=== PATIENT | female | born 1965 | race American Indian/Alaskan Native ===

== ENCOUNTER 2016-12-03 10:34 | Emergency (ER) | payer OTHER ==
[2016-12-03 10:34] VITALS: BMI 28.2
[2016-12-03 13:03] VITALS: PULSE 78; RESP 18; O2SAT 100
[2016-12-03 14:26] VITALS: BP 112/69; TEMP 98.1
--- NOTE | 2016-12-03 15:34 | C.PDOC ---
History Of Present Illness 51-year-old female, PMHx includes prior back surgery, sciatica and osteoporosis , breast ca, presents to the emergency department with complaints of back pain. Patient states she has been experiencing non-traumatic pain to right lower back pain, that radiates downward to right buttock and right leg, that started two days ago. Patient notes that pain is similar to prior pain she had on left. Denies urinary/bowel incontinence, fevers, numbness/tingling, nausea/vomiting, saddle anaesthesia, or any other associated symptoms. No other complaints at this time. Time Seen by Provider: 12/03/16 11:00 Chief Complaint (Nursing): Lower Extremity Problem/Injury History Per: Patient History/Exam Limitations: no limitations Onset/Duration Of Symptoms: Days (2) Current Symptoms Are (Timing): Still Present Severity: Moderate Past Medical History Reviewed: Historical Data, Nursing Documentation, Vital Signs Vital Signs: Last Vital Signs Temp 98.1 F 12/03/16 14:25 Pulse 78 12/03/16 14:25 Resp 18 12/03/16 14:25 BP 112/69 12/03/16 14:25 Pulse Ox 100 12/03/16 15:36 - Medical History PMH: Asthma, HTN, Osteoporosis Other PMH: breast cancer Other Surgeries: partial thyroidectomy - [facility] Procedures GUM OR ALVEOLAR INCISION (10/15/14) INJECT/INFUSE NEC (02/23/13) INSERTION OF TOTALLY IMPLANTABLE VASC ACCESS DEVIC (11/14/13) Family History: States: No Known Family Hx - Social History Hx Tobacco Use: No Hx Alcohol Use: No Hx Substance Use: No - Immunization History Hx Tetanus Toxoid Vaccination: No Hx Influenza Vaccination: No Hx Pneumococcal Vaccination: No Review Of Systems Except As Marked, All Systems Reviewed And Found Negative. Constitutional: Negative for: Fever Cardiovascular: Negative for: Chest Pain Respiratory: Negative for: Cough, Shortness of Breath Gastrointestinal: Negative for: Nausea, Vomiting, Abdominal Pain Genitourinary: Negative for: Dysuria, Incontinence Musculoskeletal: Positive for: Back Pain, Leg Pain Skin: Negative for: Rash, Bruising Neurological: Negative for: Weakness, Numbness Physical Exam - Physical Exam Appears: Non-toxic, No Acute Distress Skin: Warm, Dry, No Rash Head: Atraumatic Eye(s): bilateral: Normal Inspection Neck: Normal ROM, No Midline Cervical Tenderness Chest: Symmetrical, No Deformity, No Tenderness Cardiovascular: Rhythm Regular, No Murmur Respiratory: Normal Breath Sounds, No Accessory Muscle Use, No Wheezing Gastrointestinal/Abdominal: Soft, No Tenderness Back: No CVA Tenderness, No Vertebral Tenderness, Other (tenderness to palpation of right sciatic notch) Extremity: Normal ROM, Other (Tenderness to right right hip. ) Neurological/Psych: Oriented x3, Normal Speech, Normal Cognition, Normal Motor, Normal Sensation ED Course And Treatment O2 Sat by Pulse Oximetry: 100 Pulse Ox Interpretation: Normal Medical Decision Making Medical Decision Making: pt feeling better after toradol. discharged home., with pmd f/u pt was seen during [employer] down time, discharged on paper, chart written after [employer] working again. Disposition - Disposition Referrals: Manny Macias MD [Primary Care Provider] - Disposition: HOME/ ROUTINE Disposition Time: 13:00 Condition: IMPROVED - Clinical Impression Clinical Impression: Sciatica of right side - Scribe Statement The provider has reviewed the documentation as recorded by the Mary Ann Hunter All medical record entries made by the Joeibamrit were at my direction and personally dictated by me. I have reviewed the chart and agree that the record accurately reflects my personal performance of the history, physical exam, medical decision making, and the department course for this patient. I have also personally directed, reviewed, and agree with the discharge instructions and disposition.
--- NOTE | 2016-12-03 15:59 | RAD ---
PROCEDURE: Right Hip Radiographs. HISTORY: Pain. No history of recent/ related trauma provided COMPARISON: None. FINDINGS: BONES: Normal. No fracture. JOINTS: Degenerative changes both hips right greater than left. SOFT TISSUES: Normal. OTHER FINDINGS: None. IMPRESSION: Mild degenerative changes. No acute findings.
== END 2016-12-03 14:25 | disposition home or self-care (01) ==
LOC: SUPCPDRO 10:34 → C.ER 10:34
DX: M54.31 Sciatica, right side (principal)
CPT/HCPCS: 73502; 96372; 99283; J1885

== ENCOUNTER 2017-01-24 14:57 | Inpatient (IN) | payer OTHER ==
[2017-01-24 14:58] VITALS: BMI 28.2
[2017-01-24] MEDS ORDERED: Sodium Chloride 0.9% 500 ML IV ONE (16:04)
[2017-01-24 16:42] LABS: BASO % 0.6 % (0.0-2.0); EOS # 0.1 K/uL (0.0-0.7); EOS % 0.7 % (0.0-4.0); HEMOGLOBIN 10.8 g/dL (11.0-16.0); LYMPH # 2.2 K/uL (1.0-4.3); LYMPH % 29.2 % (20.0-40.0); MEAN CELL VOLUME 89.6 fL (81.0-99.0); MEAN CORPUSCULAR HEMOGLOBIN 29.8 pg (27.0-31.0); MEAN CORPUSCULAR HGB CONC 33.3 g/dL (33.0-37.0); MEAN PLATELET VOLUME 7.7 fL (7.2-11.7); MONO # 0.8 K/uL (0.0-0.8); MONO % 11.2 % (0.0-10.0); NEUT # 4.4 K/uL (1.8-7.0); NEUT % 58.3 % (50.0-75.0); RBC 3.63 Mil/uL (3.80-5.20); RED CELL DISTRIBUTION WIDTH 14.1 % (11.5-14.5); WHITE BLOOD COUNT 7.5 K/uL (4.8-10.8)
[2017-01-24 16:55] LABS: ALBUMIN 3.9 g/dL (3.5-5.0)
[2017-01-24 16:58] LABS: CALCIUM 9.2 mg/dl (8.6-10.4)
[2017-01-24] MEDS ORDERED: Sodium Chloride 0.9% 1,000 ML ONE (17:00)
--- NOTE | 2017-01-24 17:06 | RAD ---
PROCEDURE: Right Knee Radiographs. HISTORY: fall COMPARISON: None. FINDINGS: BONES: Normal. No fracture. JOINTS: Mild osteoarthritis. JOINT EFFUSION: None. OTHER FINDINGS: None. IMPRESSION: Normal radiographs of the right knee.
--- NOTE | 2017-01-24 17:38 | C.PDOC ---
History Of Present Illness 51 year old female with a PMHx of right breast CA, mastectomy, breast reconstruction, titanium plate in the left orbit, asthma, HTN, and osteophorosis presents to the ER with a complaint of watery diarrhea, nausea, vomiting, and coughing since 01/12. Patient reports she also fell and hit her right knee yesterday and notes not producing a regular amount of urine. Denies fever, chills, flank pain, abdominal pain, or chest pain. Patient's PMD is Dr. Landrum. Time Seen by Provider: 01/24/17 15:55 Chief Complaint (Nursing): GI Problem History Per: Patient History/Exam Limitations: no limitations Onset/Duration Of Symptoms: Days Current Symptoms Are (Timing): Still Present Quality Of Discomfort: Unable To Describe Associated Symptoms: Nausea, Vomiting, Diarrhea. denies: Fever, Chills Exacerbating Factors: None Alleviating Factors: None Recent travel outside of the [place]: No Abnormal Vaginal Bleeding: No Past Medical History Reviewed: Historical Data, Nursing Documentation, Vital Signs Vital Signs: Last Vital Signs Temp 98.4 F 01/24/17 18:57 Pulse 102 H 01/24/17 18:57 Resp 16 01/24/17 18:57 BP 95/63 L 01/24/17 18:57 Pulse Ox 95 01/24/17 18:57 - Medical History PMH: Asthma, HTN, Osteoporosis Surgical History: No Surg Hx - [facility] Procedures GUM OR ALVEOLAR INCISION (10/15/14) INJECT/INFUSE NEC (02/23/13) INSERTION OF TOTALLY IMPLANTABLE VASC ACCESS DEVIC (11/14/13) Family History: States: Unknown Family Hx - Social History Hx Tobacco Use: No Hx Alcohol Use: No Hx Substance Use: No - Immunization History Hx Tetanus Toxoid Vaccination: No Hx Influenza Vaccination: No Hx Pneumococcal Vaccination: No Review Of Systems Constitutional: Negative for: Fever, Chills Cardiovascular: Negative for: Chest Pain Gastrointestinal: Positive for: Nausea, Vomiting, Diarrhea. Negative for: Abdominal Pain Musculoskeletal: Negative for: Back Pain Physical Exam - Physical Exam Appears: Non-toxic, No Acute Distress Skin: Normal Color, Warm, Dry Head: Atraumatic, Normacephalic Eye(s): bilateral: Normal Inspection, PERRL, EOMI Oral Mucosa: Moist Neck: Normal, Supple Chest: No Tenderness, Other (Left sided chest port) Cardiovascular: Rhythm Regular, No Murmur Respiratory: Normal Breath Sounds, No Rales, No Rhonchi, No Wheezing Gastrointestinal/Abdominal: Soft, No Tenderness Extremity: Normal ROM, No Tenderness, No Pedal Edema Neurological/Psych: Oriented x3, Normal Speech, Normal Cognition ED Course And Treatment - Laboratory Results Result Diagrams: 01/24/17 16:39 01/24/17 17:34 O2 Sat by Pulse Oximetry: 98 (Room air) Pulse Ox Interpretation: Normal Medical Decision Making Medical Decision Making: Plan: * Blood work * Urinalysis * Pepcid * Zofran * Tetanus vaccination * IV fluids Spoke with Dr. Macias, patient with acute renal failure. request Eleonora Aquino for admission Disposition Discussed With : Dinora Aquino Doctor Will See Patient In The: Hospital Counseled Patient/Family Regarding: Studies Performed - Disposition Disposition: HOSPITALIZED Disposition Time: 18:12 Condition: GUARDED - POA Present On Arrival: None - Clinical Impression Clinical Impression: Renal failure - Scribe Statement The provider has reviewed the documentation as recorded by the Scribe Eliazar Vasquez All medical record entries made by the Scribe were at my direction and personally dictated by me. I have reviewed the chart and agree that the record accurately reflects my personal performance of the history, physical exam, medical decision making, and the department course for this patient. I have also personally directed, reviewed, and agree with the discharge instructions and disposition. Decision To Admit - Pt Status Changed To: Hospital Disposition Of: Inpatient - Admit Certification Admit to Inpatient:: After my assessment, the patient will require hospitalization for at least two midnights. This is because of the severity of symptoms shown, intensity of services needed, and/or the medical risk in this patient being treated as an outpatient. - InPatient: Physician Admission Certification: I certify that this patient requires 2 or more midnights of care for the following reason:: acute renal faillure - . Bed Request Type: Regular Patient Diagnosis: Renal failure
[2017-01-24 17:53] LABS: CALCIUM 8.7 mg/dl (8.6-10.4)
[2017-01-24] MEDS ORDERED: Enoxaparin 40 mg Syringe SC SCH (18:20)
[2017-01-24 18:23] LABS: HCG,QUALITATIVE URINE NEGATIVE (NEGATIVE)
[2017-01-24 18:25] LABS: SQUAMOUS EPITHIAL 22 /hpf (0-5); URINE BACTERIA MANY (<OCC); URINE BILIRUBIN NEGATIVE (NEGATIVE); URINE BLOOD 1+ (NEGATIVE); URINE CLARITY Hazy (Clear); URINE COLOR Yellow (YELLOW); URINE GLUCOSE (UA) NORMAL (Normal); URINE LEUKOCYTE ESTERASE TRACE Leu/uL (Negative); URINE NITRATE NEGATIVE (NEGATIVE); URINE PROTEIN 1+ mg/dL (NEGATIVE); URINE UROBILINOGEN NORMAL mg/dL (0.2-1.0)
[2017-01-24 18:33] LABS: OPIATES, UR NEGATIVE (NEGATIVE); PHENCYCLIDINE, UR NEGATIVE (NEGATIVE)
[2017-01-24 18:38] LABS: BARBITURATES, UR NEGATIVE (NEGATIVE); BENZODIAZEPINES, UR NEGATIVE (NEGATIVE)
[2017-01-24] MEDS ORDERED: Moxifloxacin IV 400mg/250ml NS 400 MG/250 ML BAG IVPB ONE (18:43)
[2017-01-24] MEDS ORDERED: Enoxaparin 40 mg Syringe ONE (18:43)
[2017-01-24] MEDS: Moxifloxacin IV 400mg/250ml NS 400 MG/250 ML BAG IVPB SCH (18:50)
[2017-01-24] MEDS ORDERED: Sodium Chloride 0.9% 1,000 ML IV SCH (21:15)
--- NOTE | 2017-01-24 21:22 | CP.PCM.HP ---
Past Patient History - Past Social History Smoking Status: Never Smoked - CARDIAC Hx Hypertension: Yes - PULMONARY Hx Asthma: Yes - NEUROLOGICAL Hx Dizziness: Yes - MUSCULOSKELETAL/RHEUMATOLOGICAL Hx Falls: Yes - GASTROINTESTINAL Hx Gastroesophageal Reflux: Yes - PSYCHIATRIC Hx Substance Use: No - SURGICAL HISTORY Hx Surgeries: Yes Hx Eye Surgery: Yes (left) Hx Mastectomy: Yes (R breast) Hx Thyroidectomy: Yes Hx Tubal Ligation: Yes Other/Comment: R breast lumpectomy, Left SC POC - ANESTHESIA Hx Anesthesia: Yes Hx Anesthesia Reactions: No Hx Malignant Hyperthermia: No Has any member of the family had a problem w/ anesthesia?: No Meds Allergies/Adverse Reactions: Allergies Allergy/AdvReac Type Severity Reaction Status Date / Time Iodinated Contrast- Oral and Allergy RASH Verified 12/03/16 10:41 IV Dye [Iodinated Contrast Media - Oral and] iodine Allergy Verified 12/03/16 10:41 morphine Allergy RASH Verified 12/03/16 10:40 silver Allergy Verified 01/24/17 17:16 [From Tegaderm AG Mesh] tap Allergy Uncoded 12/03/16 10:40 Results - Vital Signs Recent Vital Signs: Last Vital Signs Temp 98.4 F 01/24/17 18:57 Pulse 102 H 01/24/17 18:57 Resp 16 01/24/17 18:57 BP 95/63 L 01/24/17 18:57 Pulse Ox 98 01/24/17 20:04 - Labs Result Diagrams: 01/24/17 16:39 01/24/17 17:34 Labs: Laboratory Results - last 24 hr 01/24/17 01/24/17 18:18 18:18 Urine Color Yellow Urine Clarity Hazy Urine pH 5.0 Ur Specific [place] 1.011 Urine Protein 1+ H Urine Glucose (UA) Normal Urine Ketones Negative Urine Blood 1+ H Urine Nitrate Negative Urine Bilirubin Negative Urine Urobilinogen Normal Ur Leukocyte Esterase Trace Urine WBC (Auto) 34 H Urine RBC (Auto) 5 H Ur Squamous Epith Cells 22 H Urine Bacteria Many H Urine HCG, Qual Negative Urine Opiates Screen Negative Urine Methadone Screen Negative Ur Barbiturates Screen Negative Ur Phencyclidine Scrn Negative Ur Amphetamines Screen Negative U Benzodiazepines Scrn Negative U Oth Cocaine Metabols Negative U Cannabinoids Screen Negative
[2017-01-25] MEDS: Potassium Chloride 20 mEq/15 ml LIQ UD PO SCH ×2 (00:09→05:11)
[2017-01-25 01:07] VITALS: RESP 20
--- NOTE | 2017-01-25 01:18 | CP.PCM.CON ---
History of Present Illness - History of Present Illness History of Present Illness: 51 year old female with a history of right sided breast cancer s/p lumpectomy, adjuvant chemotherapy/radiation in 1999, with local recurrence in 2004 s/p mastectomy and chemotherapy, osteoporosis, admitted with dehydration and acute renal failure. The patient recently returned from [place] and notes to abdominal discomfort, N/V, and poor PO intake since eating at a [employer] restaurant. In the ER she was found to have a Cr of 13. Her Cr at the end of December was 1.4 in the office. Past medical history: breast cancer, osteoporosis Past surgical history: Mastectomy Family history: Daughter had cervical cancer Social history: Denies tobacco, alcohol, and illicit drug use. Allergies: Several, see list Review of systems: All remaining review of systems including HEENT, cardiovascular, respiratory, gastrointestinal, genitourinary, musculoskeletal, dermatologic, neurologic, and psychiatric are negative unless mentioned in the HPI. Past Patient History - Past Social History Smoking Status: Never Smoked - CARDIAC Hx Hypertension: Yes - PULMONARY Hx Asthma: Yes - NEUROLOGICAL Hx Dizziness: Yes - MUSCULOSKELETAL/RHEUMATOLOGICAL Hx Falls: Yes - GASTROINTESTINAL Hx Gastroesophageal Reflux: Yes - PSYCHIATRIC Hx Substance Use: No - SURGICAL HISTORY Hx Surgeries: Yes Hx Eye Surgery: Yes (left) Hx Mastectomy: Yes (R breast) Hx Thyroidectomy: Yes Hx Tubal Ligation: Yes Other/Comment: R breast lumpectomy, Left SC POC - ANESTHESIA Hx Anesthesia: Yes Hx Anesthesia Reactions: No Hx Malignant Hyperthermia: No Has any member of the family had a problem w/ anesthesia?: No Meds Allergies/Adverse Reactions: Allergies Allergy/AdvReac Type Severity Reaction Status Date / Time Iodinated Contrast- Oral and Allergy RASH Verified 12/03/16 10:41 IV Dye [Iodinated Contrast Media - Oral and] iodine Allergy Verified 12/03/16 10:41 morphine Allergy RASH Verified 12/03/16 10:40 silver Allergy Verified 01/24/17 17:16 [From Tegaderm AG Mesh] tap Allergy Uncoded 12/03/16 10:40 - Medications Medications: Current Medications Enoxaparin Sodium (Lovenox) 40 mg SC DAILY [facility] Last Admin: 01/24/17 18:49 Dose: 40 mg Moxifloxacin HCl (Avelox Iv 400mg/250ml Ns) 400 mg in 250 mls @ 167 mls/hr IVPB Q24H [facility] Last Admin: 01/24/17 18:50 Dose: 167 mls/hr Sodium Chloride (Sodium Chloride 0.9%) 1,000 mls @ 75 mls/hr IV .[id number] [facility] Last Admin: 01/24/17 21:15 Dose: 75 mls/hr Ondansetron HCl (Zofran Inj) 4 mg IVP Q8H PRN PRN Reason: Nausea/Vomiting Last Admin: 01/24/17 22:20 Dose: 4 mg Pantoprazole Sodium (Protonix Inj) 40 mg IVP DAILY [facility] Last Admin: 01/24/17 18:49 Dose: 40 mg Pneumococcal Polyvalent Vaccine (Pneumovax 23 Vaccine) 0.5 ml IM .ONCE ONE Stop: 01/26/17 10:01 Potassium Chloride (Potassium Chloride Oral Soln) 40 meq PO Q4 [facility] Stop: 01/25/17 04:01 Last Admin: 01/25/17 00:09 Dose: 40 meq Physical Exam - Head Exam Head Exam: ATRAUMATIC - Eye Exam Eye Exam: Normal appearance - ENT Exam ENT Exam: Mucous Membranes Dry - Respiratory Exam Respiratory Exam: NORMAL BREATHING PATTERN - Cardiovascular Exam Cardiovascular Exam: +S1, +S2 - GI/Abdominal Exam GI & Abdominal Exam: Normal Bowel Sounds - Extremities Exam Extremities exam: Positive for: normal inspection - Neurological Exam Neurological exam: Oriented x3 - Psychiatric Exam Psychiatric exam: Normal Affect, Normal Mood - Skin Skin Exam: Warm Results - Vital Signs Recent Vital Signs: Last Vital Signs Temp 98.2 F 01/25/17 00:00 Pulse 113 H 01/25/17 00:00 Resp 20 01/25/17 00:00 BP 100/61 01/25/17 00:00 Pulse Ox 96 01/25/17 00:00 - Labs Result Diagrams: 01/24/17 16:39 01/24/17 17:34 Labs: Laboratory Results - last 24 hr 01/24/17 01/24/17 18:18 18:18 Urine Color Yellow Urine Clarity Hazy Urine pH 5.0 Ur Specific [place] 1.011 Urine Protein 1+ H Urine Glucose (UA) Normal Urine Ketones Negative Urine Blood 1+ H Urine Nitrate Negative Urine Bilirubin Negative Urine Urobilinogen Normal Ur Leukocyte Esterase Trace Urine WBC (Auto) 34 H Urine RBC (Auto) 5 H Ur Squamous Epith Cells 22 H Urine Bacteria Many H Urine HCG, Qual Negative Urine Opiates Screen Negative Urine Methadone Screen Negative Ur Barbiturates Screen Negative Ur Phencyclidine Scrn Negative Ur Amphetamines Screen Negative U Benzodiazepines Scrn Negative U Oth Cocaine Metabols Negative U Cannabinoids Screen Negative Assessment & Plan (1) Anemia Assessment and Plan: mild will check ferritin, retic count, b12, folate, FOBT to further characterize Status: Acute (2) Breast cancer Assessment and Plan: bone scan in 12/2016 showed uptake in the femor/femoral neck ?metastatic disease MRI of the hip if renal function improves Thank you for this interesting consult. Status: Acute
[2017-01-25 06:55] LABS: HEMOGLOBIN 9.5 g/dL (11.0-16.0); MEAN CELL VOLUME 89.7 fL (81.0-99.0); MEAN CORPUSCULAR HEMOGLOBIN 30.5 pg (27.0-31.0); MEAN PLATELET VOLUME 8.1 fL (7.2-11.7); RBC 3.1 Mil/uL (3.80-5.20); RED CELL DISTRIBUTION WIDTH 14.2 % (11.5-14.5); WHITE BLOOD COUNT 8.2 K/uL (4.8-10.8)
[2017-01-25 07:13] LABS: ALB/GLOB RATIO 0.9 (1.0-2.1); ALBUMIN 3.2 g/dL (3.5-5.0)
[2017-01-25] MEDS: Sodium Chloride 0.9% 1,000 ML IV SCH ×2 (08:37→12:07)
[2017-01-25] MEDS: Pantoprazole 40 mg EC Tab PO SCH (09:54)
--- NOTE | 2017-01-25 10:36 | CP.PCM.CON ---
<Linda Cornejo - Last Filed: 01/25/17 11:18> History of Present Illness - History of Present Illness History of Present Illness: GI Fellow PGY4 Consult Note This is a 51yF with pmhx of breast ca s/p mastectomy and chemoradiation therapy , osteoporosis with possible mets to femur on bone scan 12/2016 plan for further imaging by oncology. Pt pw co watery diarrhea for 2 weeks starting 01/14/2017 after eating rice and crab at a [employer]. Pt reports 3-4 watery BM yellow/green in color with no associated abdominal pain, fevers, chills, pt does report nausea,vomiting and new dysphagia/burning sensation in her throat. Since admission to the hospital pt reports no further episodes of diarrhea. Also , pt reports taking po antibiotics Augmentin for dental abscess which was started prior to getting sick and she did complete the course while she was sick. Pt's last EGD/Colonoscopy was 01/2015 with gastritis and 2 polyps were removed. Pt was found be in RAMO with Cr 11.5 from 1.4 baseline a few weeks ago and UTI and started on IV Moxifloaxacin. ROS: A 12pt ROS was obtained and was negative except as mentioned above. PmHx: As stated in HPI PsHx: A stated in HPI FHx:positive for colon cancer in uncle who was diagnosed in his early 40s. SHx: no tobacco, social alcohol Past Patient History - Past Social History Smoking Status: Never Smoked - CARDIAC Hx Hypertension: Yes - PULMONARY Hx Asthma: Yes - NEUROLOGICAL Hx Dizziness: Yes - MUSCULOSKELETAL/RHEUMATOLOGICAL Hx Falls: Yes - GASTROINTESTINAL Hx Gastroesophageal Reflux: Yes - PSYCHIATRIC Hx Substance Use: No - SURGICAL HISTORY Hx Surgeries: Yes Hx Eye Surgery: Yes (left) Hx Mastectomy: Yes (R breast) Hx Thyroidectomy: Yes Hx Tubal Ligation: Yes Other/Comment: R breast lumpectomy, Left SC POC - ANESTHESIA Hx Anesthesia: Yes Hx Anesthesia Reactions: No Hx Malignant Hyperthermia: No Has any member of the family had a problem w/ anesthesia?: No Meds Allergies/Adverse Reactions: Allergies Allergy/AdvReac Type Severity Reaction Status Date / Time Iodinated Contrast- Oral and Allergy RASH Verified 12/03/16 10:41 IV Dye [Iodinated Contrast Media - Oral and] iodine Allergy Verified 12/03/16 10:41 morphine Allergy RASH Verified 12/03/16 10:40 silver Allergy Verified 01/24/17 17:16 [From Tegaderm AG Mesh] tap Allergy Uncoded 12/03/16 10:40 - Medications Medications: Current Medications Heparin Sodium (Porcine) (Heparin) 5,000 units SC Q12 [facility] Last Admin: 01/25/17 09:53 Dose: 5,000 units Moxifloxacin HCl (Avelox Iv 400mg/250ml Ns) 400 mg in 250 mls @ 167 mls/hr IVPB Q24H [facility] Last Admin: 01/24/17 18:50 Dose: 167 mls/hr Sodium Chloride (Sodium Chloride 0.9%) 1,000 mls @ 100 mls/hr IV .Q10H [facility] Last Admin: 01/25/17 08:37 Dose: 100 mls/hr Ondansetron HCl (Zofran Inj) 4 mg IVP Q8H PRN PRN Reason: Nausea/Vomiting Last Admin: 01/25/17 07:57 Dose: 4 mg Pantoprazole Sodium (Protonix Ec Tab) 40 mg PO DAILY [facility] Last Admin: 01/25/17 09:54 Dose: 40 mg Pneumococcal Polyvalent Vaccine (Pneumovax 23 Vaccine) 0.5 ml IM .ONCE ONE Stop: 01/26/17 10:01 Physical Exam - Constitutional Appears: Well, Non-toxic, No Acute Distress - Head Exam Head Exam: ATRAUMATIC, NORMAL INSPECTION, NORMOCEPHALIC - Eye Exam Eye Exam: EOMI, Normal appearance, PERRL Pupil Exam: PERRL - ENT Exam ENT Exam: Mucous Membranes Moist, Normal Exam, Normal External Ear Exam - Neck Exam Neck exam: Positive for: Full Rom, Normal Inspection - Respiratory Exam Respiratory Exam: Clear to Auscultation Bilateral, NORMAL BREATHING PATTERN - Cardiovascular Exam Cardiovascular Exam: RRR, +S1, +S2 - GI/Abdominal Exam GI & Abdominal Exam: Normal Bowel Sounds, Soft. absent: Organomegaly, Tenderness - Rectal Exam Rectal Exam: Deferred - Extremities Exam Extremities exam: Positive for: normal inspection - Back Exam Back exam: NORMAL INSPECTION - Neurological Exam Neurological exam: Alert, Oriented x3 - Psychiatric Exam Psychiatric exam: Normal Affect, Normal Mood - Skin Skin Exam: Dry, Intact, Normal Color, Warm Results - Vital Signs Recent Vital Signs: Last Vital Signs Temp 98.2 F 01/25/17 00:00 Pulse 113 H 01/25/17 00:00 Resp 20 01/25/17 00:00 BP 100/61 01/25/17 00:00 Pulse Ox 96 01/25/17 00:00 - Labs Result Diagrams: 01/25/17 06:37 01/25/17 06:37 Labs: Laboratory Results - last 24 hr 01/24/17 01/24/17 01/25/17 18:18 18:18 06:37 WBC 8.2 RBC 3.10 L Hgb 9.5 L Hct 27.8 L MCV 89.7 MCH 30.5 MCHC 34.0 RDW 14.2 Plt Count 289 MPV 8.1 Sodium Potassium Chloride Carbon Dioxide Anion Gap BUN Creatinine Est GFR ( Amer) Est GFR (Non-Af Amer) Random Glucose Calcium Total Bilirubin AST ALT Alkaline Phosphatase Total Protein Albumin Globulin Albumin/Globulin Ratio Urine Color Yellow Urine Clarity Hazy Urine pH 5.0 Ur Specific [place] 1.011 Urine Protein 1+ H Urine Glucose (UA) Normal Urine Ketones Negative Urine Blood 1+ H Urine Nitrate Negative Urine Bilirubin Negative Urine Urobilinogen Normal Ur Leukocyte Esterase Trace Urine WBC (Auto) 34 H Urine RBC (Auto) 5 H Ur Squamous Epith Cells 22 H Urine Bacteria Many H Urine HCG, Qual Negative Urine Opiates Screen Negative Urine Methadone Screen Negative Ur Barbiturates Screen Negative Ur Phencyclidine Scrn Negative Ur Amphetamines Screen Negative U Benzodiazepines Scrn Negative U Oth Cocaine Metabols Negative U Cannabinoids Screen Negative 01/25/17 06:37 WBC RBC Hgb Hct MCV MCH MCHC RDW Plt Count MPV Sodium 134 Potassium 3.5 L Chloride 102 Carbon Dioxide 18 L Anion Gap 18 BUN 50 H Creatinine 7.1 H D Est GFR ( Amer) 7 Est GFR (Non-Af Amer) 6 Random Glucose 86 Calcium 8.0 L Total Bilirubin 0.5 AST 13 L ALT 14 Alkaline Phosphatase 57 Total Protein 6.5 Albumin 3.2 L Globulin 3.4 Albumin/Globulin Ratio 0.9 L Urine Color Urine Clarity Urine pH Ur Specific [place] Urine Protein Urine Glucose (UA) Urine Ketones Urine Blood Urine Nitrate Urine Bilirubin Urine Urobilinogen Ur Leukocyte Esterase Urine WBC (Auto) Urine RBC (Auto) Ur Squamous Epith Cells Urine Bacteria Urine HCG, Qual Urine Opiates Screen Urine Methadone Screen Ur Barbiturates Screen Ur Phencyclidine Scrn Ur Amphetamines Screen U Benzodiazepines Scrn U Oth Cocaine Metabols U Cannabinoids Screen Assessment & Plan - Assessment and Plan (Free Text) Assessment: This is a 51yF with hx of breast cancer, osteoporosis, gastritis pw co diarrhea , N/V or 2 weeks. 1. Gastroenteritis-viral/bacterial vs Food poisoning vs Drug induced from antibiotic therapy 2. RAMO 3. Gastritis 4. Dysphagia vs drug induced esophagitis 5. Breast CA 6. Osteoporosis 7. UTI Plan: -Diarrhea has resolved at this time-stool studies ordered including c diff if pt is able to have stool sample sent -Continue supportive care with IVF hydration for RAMO-maybe from Ecoli 0157:[id number] -Continue protonix 40mg po daily before breakfast for gastritis -Dysphagia-improved, pt able to eat breakfast, will order swallow evaluation -No endoscopic evaluation at this time -Recommend avoiding antibiotic to prevent further diarrhea and adding probiotic <Lynne Gottlieb MD - Last Filed: 01/25/17 11:53> Meds - Medications Medications: Current Medications Heparin Sodium (Porcine) (Heparin) 5,000 units SC Q12 [facility] Last Admin: 01/25/17 09:53 Dose: 5,000 units Moxifloxacin HCl (Avelox Iv 400mg/250ml Ns) 400 mg in 250 mls @ 167 mls/hr IVPB Q24H [facility] Last Admin: 01/24/17 18:50 Dose: 167 mls/hr Sodium Chloride (Sodium Chloride 0.9%) 1,000 mls @ 100 mls/hr IV .Q10H [facility] Last Admin: 01/25/17 08:37 Dose: 100 mls/hr Ondansetron HCl (Zofran Inj) 4 mg IVP Q8H PRN PRN Reason: Nausea/Vomiting Last Admin: 01/25/17 07:57 Dose: 4 mg Pantoprazole Sodium (Protonix Ec Tab) 40 mg PO DAILY [facility] Last Admin: 01/25/17 09:54 Dose: 40 mg Pneumococcal Polyvalent Vaccine (Pneumovax 23 Vaccine) 0.5 ml IM .ONCE ONE Stop: 01/26/17 10:01 Results - Vital Signs Recent Vital Signs: Last Vital Signs Temp 98.2 F 01/25/17 00:00 Pulse 113 H 01/25/17 00:00 Resp 20 01/25/17 00:00 BP 100/61 01/25/17 00:00 Pulse Ox 96 01/25/17 00:00 - Labs Result Diagrams: 01/25/17 06:37 01/25/17 06:37 Labs: Laboratory Results - last 24 hr 01/24/17 01/24/17 01/25/17 18:18 18:18 06:37 WBC 8.2 RBC 3.10 L Hgb 9.5 L Hct 27.8 L MCV 89.7 MCH 30.5 MCHC 34.0 RDW 14.2 Plt Count 289 MPV 8.1 Sodium Potassium Chloride Carbon Dioxide Anion Gap BUN Creatinine Est GFR ( Amer) Est GFR (Non-Af Amer) Random Glucose Calcium Total Bilirubin AST ALT Alkaline Phosphatase Total Protein Albumin Globulin Albumin/Globulin Ratio Urine Color Yellow Urine Clarity Hazy Urine pH 5.0 Ur Specific [place] 1.011 Urine Protein 1+ H Urine Glucose (UA) Normal Urine Ketones Negative Urine Blood 1+ H Urine Nitrate Negative Urine Bilirubin Negative Urine Urobilinogen Normal Ur Leukocyte Esterase Trace Urine WBC (Auto) 34 H Urine RBC (Auto) 5 H Ur Squamous Epith Cells 22 H Urine Bacteria Many H Urine HCG, Qual Negative Urine Opiates Screen Negative Urine Methadone Screen Negative Ur Barbiturates Screen Negative Ur Phencyclidine Scrn Negative Ur Amphetamines Screen Negative U Benzodiazepines Scrn Negative U Oth Cocaine Metabols Negative U Cannabinoids Screen Negative 01/25/17 06:37 WBC RBC Hgb Hct MCV MCH MCHC RDW Plt Count MPV Sodium 134 Potassium 3.5 L Chloride 102 Carbon Dioxide 18 L Anion Gap 18 BUN 50 H Creatinine 7.1 H D Est GFR ( Amer) 7 Est GFR (Non-Af Amer) 6 Random Glucose 86 Calcium 8.0 L Total Bilirubin 0.5 AST 13 L ALT 14 Alkaline Phosphatase 57 Total Protein 6.5 Albumin 3.2 L Globulin 3.4 Albumin/Globulin Ratio 0.9 L Urine Color Urine Clarity Urine pH Ur Specific [place] Urine Protein Urine Glucose (UA) Urine Ketones Urine Blood Urine Nitrate Urine Bilirubin Urine Urobilinogen Ur Leukocyte Esterase Urine WBC (Auto) Urine RBC (Auto) Ur Squamous Epith Cells Urine Bacteria Urine HCG, Qual Urine Opiates Screen Urine Methadone Screen Ur Barbiturates Screen Ur Phencyclidine Scrn Ur Amphetamines Screen U Benzodiazepines Scrn U Oth Cocaine Metabols U Cannabinoids Screen Attending/Attestation - Attestation I have personally seen and examined this patient.: Yes I have fully participated in the care of the patient.: Yes I have reviewed all pertinent clinical information: Yes Notes (Text): 01/25/17 11:47 Patient seen and examined with GI fellow. This is a 51 yr old F with hx of breast cancer s/p mastectomy, chemo radiation in 2003 now in remission , osteoporosis, gastritis presenting with complain of loose watery diarrhea, nausea and vomiting for past 2 weeks after eating seafood which has resolved since she has been in the hospital. Likely self resolved gastroenteritis. Unable to give stool samples. Continue supportive care with IVF for RAMO. Daily PPi in am for heartburn. Will sign off now as no GI symptoms.
--- NOTE | 2017-01-25 11:18 | CP.PCM.PN ---
Subjective - Date & Time of Evaluation Date of Evaluation: 01/25/17 Time of Evaluation: 09:40 - Subjective Subjective: clinically same Objective - Vital Signs/Intake and Output Vital Signs (last 24 hours): Temp Pulse Resp BP Pulse Ox 98.2 F 113 H 20 100/61 96 01/25/17 00:00 01/25/17 00:00 01/25/17 00:00 01/25/17 00:00 01/25/17 00:00 Intake and Output: 01/25/17 01/25/17 06:59 18:59 Intake Total 840 Output Total 750 Balance 90 - Medications Medications: Current Medications Heparin Sodium (Porcine) (Heparin) 5,000 units SC Q12 [facility] Last Admin: 01/25/17 09:53 Dose: 5,000 units Moxifloxacin HCl (Avelox Iv 400mg/250ml Ns) 400 mg in 250 mls @ 167 mls/hr IVPB Q24H [facility] Last Admin: 01/24/17 18:50 Dose: 167 mls/hr Sodium Chloride (Sodium Chloride 0.9%) 1,000 mls @ 100 mls/hr IV .Q10H [facility] Last Admin: 01/25/17 08:37 Dose: 100 mls/hr Ondansetron HCl (Zofran Inj) 4 mg IVP Q8H PRN PRN Reason: Nausea/Vomiting Last Admin: 01/25/17 07:57 Dose: 4 mg Pantoprazole Sodium (Protonix Ec Tab) 40 mg PO DAILY [facility] Last Admin: 01/25/17 09:54 Dose: 40 mg Pneumococcal Polyvalent Vaccine (Pneumovax 23 Vaccine) 0.5 ml IM .ONCE ONE Stop: 01/26/17 10:01 - Labs Labs: 01/25/17 06:37 01/25/17 06:37 - Constitutional Appears: Well - Head Exam Head Exam: ATRAUMATIC, NORMAL INSPECTION, NORMOCEPHALIC - Eye Exam Eye Exam: EOMI, Normal appearance, PERRL Pupil Exam: NORMAL ACCOMODATION, PERRL - ENT Exam ENT Exam: Mucous Membranes Moist, Normal Exam - Neck Exam Neck Exam: Full ROM, Normal Inspection. absent: Lymphadenopathy - Respiratory Exam Respiratory Exam: Decreased Breath Sounds - Cardiovascular Exam Cardiovascular Exam: REGULAR RHYTHM, +S1, +S2 - GI/Abdominal Exam GI & Abdominal Exam: Soft, Diminished Bowel Sounds - Rectal Exam Rectal Exam: Deferred
--- NOTE | 2017-01-25 11:24 | CP.PCM.CON ---
History of Present Illness - History of Present Illness History of Present Illness: 51 y/o female with Hx/o Rt breast Ca, s/p mastectomy,RT & chemo (1999, 2004) is admitted for acute renal failure. Pt was visiting [place] earlier this month & had sea food & rice @ a [employer] restaurant. Since then developed abdominal discomfort & watery diarrhwa & generalized weakness. Blood work in ER showed BUN/Creat of 60/11.5. Pt denied hx/o kidney disease.In 2014 had kidney stones removed No Hx/o DM Past Patient History - Past Social History Smoking Status: Never Smoked - CARDIAC Hx Hypertension: Yes - PULMONARY Hx Asthma: Yes - NEUROLOGICAL Hx Dizziness: Yes - MUSCULOSKELETAL/RHEUMATOLOGICAL Hx Falls: Yes - GASTROINTESTINAL Hx Gastroesophageal Reflux: Yes - PSYCHIATRIC Hx Substance Use: No - SURGICAL HISTORY Hx Surgeries: Yes Hx Eye Surgery: Yes (left) Hx Mastectomy: Yes (R breast) Hx Thyroidectomy: Yes Hx Tubal Ligation: Yes Other/Comment: R breast lumpectomy, Left SC POC - ANESTHESIA Hx Anesthesia: Yes Hx Anesthesia Reactions: No Hx Malignant Hyperthermia: No Has any member of the family had a problem w/ anesthesia?: No Meds Allergies/Adverse Reactions: Allergies Allergy/AdvReac Type Severity Reaction Status Date / Time Iodinated Contrast- Oral and Allergy RASH Verified 12/03/16 10:41 IV Dye [Iodinated Contrast Media - Oral and] iodine Allergy Verified 12/03/16 10:41 morphine Allergy RASH Verified 12/03/16 10:40 silver Allergy Verified 01/24/17 17:16 [From Tegaderm AG Mesh] tap Allergy Uncoded 12/03/16 10:40 - Medications Medications: Current Medications Heparin Sodium (Porcine) (Heparin) 5,000 units SC Q12 [facility] Last Admin: 01/25/17 09:53 Dose: 5,000 units Moxifloxacin HCl (Avelox Iv 400mg/250ml Ns) 400 mg in 250 mls @ 167 mls/hr IVPB Q24H [facility] Last Admin: 01/24/17 18:50 Dose: 167 mls/hr Sodium Chloride (Sodium Chloride 0.9%) 1,000 mls @ 100 mls/hr IV .Q10H [facility] Last Admin: 01/25/17 08:37 Dose: 100 mls/hr Ondansetron HCl (Zofran Inj) 4 mg IVP Q8H PRN PRN Reason: Nausea/Vomiting Last Admin: 01/25/17 07:57 Dose: 4 mg Pantoprazole Sodium (Protonix Ec Tab) 40 mg PO DAILY [facility] Last Admin: 01/25/17 09:54 Dose: 40 mg Pneumococcal Polyvalent Vaccine (Pneumovax 23 Vaccine) 0.5 ml IM .ONCE ONE Stop: 01/26/17 10:01 Physical Exam - Constitutional Appears: No Acute Distress - Head Exam Head Exam: ATRAUMATIC, NORMOCEPHALIC - Eye Exam Additional comments: Mild b/l ptosis - ENT Exam ENT Exam: Mucous Membranes Moist - Neck Exam Neck exam: Positive for: Full Rom - Respiratory Exam Respiratory Exam: NORMAL BREATHING PATTERN Additional comments: Lungs clear - Cardiovascular Exam Cardiovascular Exam: REGULAR RHYTHM Additional comments: 104/min - GI/Abdominal Exam GI & Abdominal Exam: Soft Additional comments: No tenderness - Rectal Exam Additional comments: No pedal edema or cyanosis Results - Vital Signs Recent Vital Signs: Last Vital Signs Temp 98.2 F 01/25/17 00:00 Pulse 113 H 01/25/17 00:00 Resp 20 01/25/17 00:00 BP 100/61 01/25/17 00:00 Pulse Ox 96 01/25/17 00:00 - Labs Result Diagrams: 01/25/17 06:37 01/25/17 06:37 Labs: Laboratory Results - last 24 hr 01/24/17 01/24/17 01/25/17 18:18 18:18 06:37 WBC 8.2 RBC 3.10 L Hgb 9.5 L Hct 27.8 L MCV 89.7 MCH 30.5 MCHC 34.0 RDW 14.2 Plt Count 289 MPV 8.1 Sodium Potassium Chloride Carbon Dioxide Anion Gap BUN Creatinine Est GFR ( Amer) Est GFR (Non-Af Amer) Random Glucose Calcium Total Bilirubin AST ALT Alkaline Phosphatase Total Protein Albumin Globulin Albumin/Globulin Ratio Urine Color Yellow Urine Clarity Hazy Urine pH 5.0 Ur Specific [place] 1.011 Urine Protein 1+ H Urine Glucose (UA) Normal Urine Ketones Negative Urine Blood 1+ H Urine Nitrate Negative Urine Bilirubin Negative Urine Urobilinogen Normal Ur Leukocyte Esterase Trace Urine WBC (Auto) 34 H Urine RBC (Auto) 5 H Ur Squamous Epith Cells 22 H Urine Bacteria Many H Urine HCG, Qual Negative Urine Opiates Screen Negative Urine Methadone Screen Negative Ur Barbiturates Screen Negative Ur Phencyclidine Scrn Negative Ur Amphetamines Screen Negative U Benzodiazepines Scrn Negative U Oth Cocaine Metabols Negative U Cannabinoids Screen Negative 01/25/17 06:37 WBC RBC Hgb Hct MCV MCH MCHC RDW Plt Count MPV Sodium 134 Potassium 3.5 L Chloride 102 Carbon Dioxide 18 L Anion Gap 18 BUN 50 H Creatinine 7.1 H D Est GFR ( Amer) 7 Est GFR (Non-Af Amer) 6 Random Glucose 86 Calcium 8.0 L Total Bilirubin 0.5 AST 13 L ALT 14 Alkaline Phosphatase 57 Total Protein 6.5 Albumin 3.2 L Globulin 3.4 Albumin/Globulin Ratio 0.9 L Urine Color Urine Clarity Urine pH Ur Specific [place] Urine Protein Urine Glucose (UA) Urine Ketones Urine Blood Urine Nitrate Urine Bilirubin Urine Urobilinogen Ur Leukocyte Esterase Urine WBC (Auto) Urine RBC (Auto) Ur Squamous Epith Cells Urine Bacteria Urine HCG, Qual Urine Opiates Screen Urine Methadone Screen Ur Barbiturates Screen Ur Phencyclidine Scrn Ur Amphetamines Screen U Benzodiazepines Scrn U Oth Cocaine Metabols U Cannabinoids Screen Assessment & Plan - Assessment and Plan (Free Text) Assessment: Acute renal failure most likely secondary to dehydration Gastroenteritis Breast Ca Plan: Renal function is improving Continue IV hydrarion Urine spot lytes Renal US
--- NOTE | 2017-01-25 14:35 | US ---
Renal ultrasound History: Acute renal failure. Comparison: None available. Technique: Real-time sonography was performed through the kidneys. Findings: Right kidney: 8.8 x 4.2 x 4.1 centimeters. Diminutive. Mild increased echogenicity of the renal parenchymal cortex suggestive for medical renal disease. No calculi or hydronephrosis. Left kidney: 9.4 x 4.1 x 4.3 centimeters. Mild increased echogenicity of the renal parenchymal cortex suggestive for medical renal disease. No calculi or hydronephrosis. Visualized aorta is grossly preserved. Urinary bladder is underdistended but otherwise grossly preserved. Impression: Increased echogenicity of the bilateral renal parenchymal cortices suggestive for medical renal disease.
[2017-01-25] MEDS ORDERED: Potassium Chloride 20 mEq ER Tab PO STA (17:01)
[2017-01-25 18:21] LABS: CREATININE, RANDOM URINE 97.9 mg/dL
[2017-01-25] MEDS: Moxifloxacin IV 400mg/250ml NS 400 MG/250 ML BAG IVPB SCH (22:03)
[2017-01-26] MEDS: Sodium Chloride 0.9% 1,000 ML IV SCH (05:30)
[2017-01-26 07:34] LABS: BASO % 0.5 % (0.0-2.0); EOS # 0.1 K/uL (0.0-0.7); EOS % 0.9 % (0.0-4.0); HEMOGLOBIN 9.1 g/dL (11.0-16.0); LYMPH # 2.6 K/uL (1.0-4.3); LYMPH % 28.9 % (20.0-40.0); MEAN CELL VOLUME 89.8 fL (81.0-99.0); MEAN CORPUSCULAR HEMOGLOBIN 30.9 pg (27.0-31.0); MEAN CORPUSCULAR HGB CONC 34.4 g/dL (33.0-37.0); MEAN PLATELET VOLUME 7.9 fL (7.2-11.7); MONO % 11.5 % (0.0-10.0); NEUT # 5.1 K/uL (1.8-7.0); NEUT % 58.2 % (50.0-75.0); RBC 2.94 Mil/uL (3.80-5.20); WHITE BLOOD COUNT 8.8 K/uL (4.8-10.8)
[2017-01-26] MEDS ORDERED: Pneumococcal 23-Valent Vaccine IM ONE ×2 (10:00→14:00)
--- NOTE | 2017-01-26 11:01 | CP.PCM.PN ---
Subjective - Date & Time of Evaluation Date of Evaluation: 01/26/17 Time of Evaluation: 10:40 - Subjective Subjective: Feels better today but still has loose BM * Tmax was 100.8 Objective - Vital Signs/Intake and Output Vital Signs (last 24 hours): Temp Pulse Resp BP Pulse Ox 98.5 F 84 20 93/59 L 95 01/26/17 09:25 01/26/17 09:25 01/26/17 09:25 01/26/17 09:25 01/26/17 09:25 Intake and Output: 01/26/17 01/26/17 06:59 18:59 Intake Total 1760 Output Total 0 Balance 1760 - Medications Medications: Current Medications Heparin Sodium (Porcine) (Heparin) 5,000 units SC Q12 [facility] Last Admin: 01/25/17 22:01 Dose: 5,000 units Moxifloxacin HCl (Avelox Iv 400mg/250ml Ns) 400 mg in 250 mls @ 167 mls/hr IVPB Q24H [facility] Last Admin: 01/25/17 22:03 Dose: 167 mls/hr Sodium Chloride (Sodium Chloride 0.9%) 1,000 mls @ 100 mls/hr IV .Q10H [facility] Last Admin: 01/26/17 05:30 Dose: 100 mls/hr Ondansetron HCl (Zofran Inj) 4 mg IVP Q8H PRN PRN Reason: Nausea/Vomiting Last Admin: 01/26/17 02:18 Dose: 4 mg Pantoprazole Sodium (Protonix Ec Tab) 40 mg PO DAILY [facility] Last Admin: 01/25/17 09:54 Dose: 40 mg - Labs Labs: 01/26/17 07:08 01/26/17 07:08 - Respiratory Exam Respiratory Exam: NORMAL BREATHING PATTERN Additional comments: Lungs clear - Cardiovascular Exam Cardiovascular Exam: REGULAR RHYTHM - GI/Abdominal Exam GI & Abdominal Exam: Soft - Extremities Exam Additional comments: No edema Assessment and Plan - Assessment and Plan (Free Text) Assessment: Improving RAMO Dehydration. gastroenteritie Breast Ca Plan: Marked improvement in renal function Continue current Mx Renal US reveals b/l echogenic kidneys suggesting underlying chronic kidney dis Continue to monitor
[2017-01-26] MEDS: Pantoprazole 40 mg EC Tab PO SCH (11:20)
--- NOTE | 2017-01-26 11:20 | CP.PCM.PN ---
Subjective - Date & Time of Evaluation Date of Evaluation: 01/26/17 Time of Evaluation: 09:40 - Subjective Subjective: clinically same Objective - Vital Signs/Intake and Output Vital Signs (last 24 hours): Temp Pulse Resp BP Pulse Ox 98.5 F 84 20 93/59 L 95 01/26/17 09:25 01/26/17 09:25 01/26/17 09:25 01/26/17 09:25 01/26/17 09:25 Intake and Output: 01/26/17 01/26/17 06:59 18:59 Intake Total 1760 Output Total 0 Balance 1760 - Medications Medications: Current Medications Heparin Sodium (Porcine) (Heparin) 5,000 units SC Q12 [facility] Last Admin: 01/25/17 22:01 Dose: 5,000 units Moxifloxacin HCl (Avelox Iv 400mg/250ml Ns) 400 mg in 250 mls @ 167 mls/hr IVPB Q24H [facility] Last Admin: 01/25/17 22:03 Dose: 167 mls/hr Sodium Chloride (Sodium Chloride 0.9%) 1,000 mls @ 100 mls/hr IV .Q10H [facility] Last Admin: 01/26/17 05:30 Dose: 100 mls/hr Ondansetron HCl (Zofran Inj) 4 mg IVP Q8H PRN PRN Reason: Nausea/Vomiting Last Admin: 01/26/17 02:18 Dose: 4 mg Pantoprazole Sodium (Protonix Ec Tab) 40 mg PO DAILY [facility] Last Admin: 01/25/17 09:54 Dose: 40 mg - Labs Labs: 01/26/17 07:08 01/26/17 07:08 - Constitutional Appears: Well - Head Exam Head Exam: ATRAUMATIC, NORMAL INSPECTION, NORMOCEPHALIC - Eye Exam Eye Exam: EOMI, Normal appearance, PERRL Pupil Exam: NORMAL ACCOMODATION, PERRL - ENT Exam ENT Exam: Mucous Membranes Moist, Normal Exam - Neck Exam Neck Exam: Full ROM, Normal Inspection. absent: Lymphadenopathy - Respiratory Exam Respiratory Exam: Decreased Breath Sounds - Cardiovascular Exam Cardiovascular Exam: REGULAR RHYTHM, +S1, +S2 - GI/Abdominal Exam GI & Abdominal Exam: Soft, Diminished Bowel Sounds - Rectal Exam Rectal Exam: Deferred
[2017-01-26] MEDS ORDERED: Potassium Chloride 20 mEq ER Tab PO STA (11:22)
--- NOTE | 2017-01-26 15:43 | CP.PCM.PN ---
Subjective - Date & Time of Evaluation Date of Evaluation: 01/26/17 Time of Evaluation: 15:42 - Subjective Subjective: Acute renal failure most likely secondary to dehydration Gastroenteritis improving- denies any abdo pain, n/v/d Breast Ca- follow upw greg Macias Renal function is improving ( BUN 24 Creatinine- 2.9 ) follow up with Dr. Aquino in the office on wednesday Return to ED if any worsening s/s Objective - Vital Signs/Intake and Output Vital Signs (last 24 hours): Temp Pulse Resp BP Pulse Ox 98.5 F 84 20 93/59 L 95 01/26/17 09:25 01/26/17 09:25 01/26/17 09:25 01/26/17 09:25 01/26/17 09:25 Intake and Output: 01/26/17 01/26/17 06:59 18:59 Intake Total 1760 Output Total 0 Balance 1760 - Medications Medications: Current Medications Heparin Sodium (Porcine) (Heparin) 5,000 units SC Q12 [facility] Last Admin: 01/26/17 11:20 Dose: 5,000 units Moxifloxacin HCl (Avelox Iv 400mg/250ml Ns) 400 mg in 250 mls @ 167 mls/hr IVPB Q24H [facility] Last Admin: 01/25/17 22:03 Dose: 167 mls/hr Sodium Chloride (Sodium Chloride 0.9%) 1,000 mls @ 100 mls/hr IV .Q10H [facility] Last Admin: 01/26/17 05:30 Dose: 100 mls/hr Ondansetron HCl (Zofran Inj) 4 mg IVP Q8H PRN PRN Reason: Nausea/Vomiting Last Admin: 01/26/17 02:18 Dose: 4 mg Pantoprazole Sodium (Protonix Ec Tab) 40 mg PO DAILY [facility] Last Admin: 01/26/17 11:20 Dose: 40 mg - Labs Labs: 01/26/17 07:08 01/26/17 07:08
--- NOTE | 2017-01-26 15:47 | CP.PCM.PN ---
Subjective - Date & Time of Evaluation Date of Evaluation: 01/26/17 Time of Evaluation: 13:00 - Subjective Subjective: Feeling better Objective - Vital Signs/Intake and Output Vital Signs (last 24 hours): Temp Pulse Resp BP Pulse Ox 98.5 F 84 20 93/59 L 95 01/26/17 09:25 01/26/17 09:25 01/26/17 09:25 01/26/17 09:25 01/26/17 09:25 Intake and Output: 01/26/17 01/26/17 06:59 18:59 Intake Total 1760 Output Total 0 Balance 1760 - Medications Medications: Current Medications Heparin Sodium (Porcine) (Heparin) 5,000 units SC Q12 [facility] Last Admin: 01/26/17 11:20 Dose: 5,000 units Moxifloxacin HCl (Avelox Iv 400mg/250ml Ns) 400 mg in 250 mls @ 167 mls/hr IVPB Q24H [facility] Last Admin: 01/25/17 22:03 Dose: 167 mls/hr Sodium Chloride (Sodium Chloride 0.9%) 1,000 mls @ 100 mls/hr IV .Q10H [facility] Last Admin: 01/26/17 05:30 Dose: 100 mls/hr Ondansetron HCl (Zofran Inj) 4 mg IVP Q8H PRN PRN Reason: Nausea/Vomiting Last Admin: 01/26/17 02:18 Dose: 4 mg Pantoprazole Sodium (Protonix Ec Tab) 40 mg PO DAILY [facility] Last Admin: 01/26/17 11:20 Dose: 40 mg - Labs Labs: 01/26/17 07:08 01/26/17 07:08 - Head Exam Head Exam: ATRAUMATIC - Eye Exam Eye Exam: Normal appearance - ENT Exam ENT Exam: Mucous Membranes Dry - Respiratory Exam Respiratory Exam: NORMAL BREATHING PATTERN - Cardiovascular Exam Cardiovascular Exam: +S1, +S2 - GI/Abdominal Exam GI & Abdominal Exam: Normal Bowel Sounds - Extremities Exam Extremities Exam: Normal Inspection Assessment and Plan (1) Anemia Assessment & Plan: chronic disease Status: Acute (2) Breast cancer Assessment & Plan: bone scan positive ?recurrence outpatient PET CT scan Status: Acute
--- NOTE | 2017-01-26 15:49 | CP.PCM.PN ---
Subjective - Date & Time of Evaluation Date of Evaluation: 01/25/17 Time of Evaluation: 12:00 - Subjective Subjective: Feeling better Objective - Vital Signs/Intake and Output Vital Signs (last 24 hours): Temp Pulse Resp BP Pulse Ox 98.5 F 84 20 93/59 L 95 01/26/17 09:25 01/26/17 09:25 01/26/17 09:25 01/26/17 09:25 01/26/17 09:25 Intake and Output: 01/26/17 01/26/17 06:59 18:59 Intake Total 1760 Output Total 0 Balance 1760 - Medications Medications: Current Medications Heparin Sodium (Porcine) (Heparin) 5,000 units SC Q12 [facility] Last Admin: 01/26/17 11:20 Dose: 5,000 units Moxifloxacin HCl (Avelox Iv 400mg/250ml Ns) 400 mg in 250 mls @ 167 mls/hr IVPB Q24H [facility] Last Admin: 01/25/17 22:03 Dose: 167 mls/hr Sodium Chloride (Sodium Chloride 0.9%) 1,000 mls @ 100 mls/hr IV .Q10H [facility] Last Admin: 01/26/17 05:30 Dose: 100 mls/hr Ondansetron HCl (Zofran Inj) 4 mg IVP Q8H PRN PRN Reason: Nausea/Vomiting Last Admin: 01/26/17 02:18 Dose: 4 mg Pantoprazole Sodium (Protonix Ec Tab) 40 mg PO DAILY [facility] Last Admin: 01/26/17 11:20 Dose: 40 mg - Labs Labs: 01/26/17 07:08 01/26/17 07:08 - Head Exam Head Exam: ATRAUMATIC - Eye Exam Eye Exam: Normal appearance - ENT Exam ENT Exam: Mucous Membranes Dry - Respiratory Exam Respiratory Exam: NORMAL BREATHING PATTERN - Cardiovascular Exam Cardiovascular Exam: +S1, +S2 - GI/Abdominal Exam GI & Abdominal Exam: Normal Bowel Sounds - Extremities Exam Extremities Exam: Normal Inspection Assessment and Plan (1) Anemia Assessment & Plan: chronic disease Status: Acute (2) Breast cancer Assessment & Plan: positive bone scan outpatient PET CT Status: Acute
[2017-01-26 16:06] VITALS: BP 101/62; PULSE 101; TEMP 98.2; O2SAT 99
== END 2017-01-26 16:30 | disposition home or self-care (01) | DRG 316 ==
LOC: C.ER 14:57 → C.9E 18:07 → C.3T 18:42
PROVIDERS: ADMIT Internal Medicine Nephrology; ATTEND Internal Medicine Nephrology
DX: N17.9 Acute kidney failure, unspecified (principal); I10 Essential (primary) hypertension; N39.0 Urinary tract infection, site not specified; E86.0 Dehydration; K29.70 Gastritis, unspecified, without bleeding; A08.4 Viral intestinal infection, unspecified; Z85.3 Personal history of malignant neoplasm of breast; J45.909 Unspecified asthma, uncomplicated; M81.0 Age-related osteoporosis without current pathological fracture; K21.9 Gastro-esophageal reflux disease without esophagitis; D64.9 Anemia, unspecified; T62.91XA Toxic effect of unspecified noxious substance eaten as food, accidental (unintentional), initial encounter; T36.95XA Adverse effect of unspecified systemic antibiotic, initial encounter; K20.8 Other esophagitis

== ENCOUNTER 2017-04-02 12:45 | Emergency (ER) | payer OTHER ==
[2017-04-02 12:45] VITALS: BMI 28.2
[2017-04-02 12:59] VITALS: RESP 16; TEMP 97.3; O2SAT 98
--- NOTE | 2017-04-02 13:07 | C.PDOC ---
History Of Present Illness 51 yo female c/o back pain for 3 days. Pain is worse with movement. Notes she tripped and fell in the beginning of March, was checked at the time by [facility] and discharged. Also notes her " arch fell" described as pain to the right sole of her foot. Notes she was walking different to avoid the pain. H/o back surgery in 5 years ago and notes she gets the same pain intermittently since then. No new symptoms. When she has gotten the symptoms in the past, she has received epidural but now is unable to see her doctor for one. Did not take any medication for the pain. No urinary or bowel incontinence or change in sensation. No dysuria, urinary frequency, abdominal pain, fever. No leg swelling , no SOB. Time Seen by Provider: 04/02/17 12:53 Chief Complaint (Nursing): Back Pain History Per: Patient History/Exam Limitations: no limitations Onset/Duration Of Symptoms: Days Current Symptoms Are (Timing): Still Present Past Medical History Vital Signs: Last Vital Signs Temp 97.3 F L 04/02/17 12:55 Pulse 84 04/02/17 15:08 Resp 16 04/02/17 15:08 BP 135/78 04/02/17 15:08 Pulse Ox 98 04/02/17 17:23 - Medical History PMH: Asthma, HTN, Osteoporosis Other PMH: breast cancer - [facility] Procedures GUM OR ALVEOLAR INCISION (10/15/14) INJECT/INFUSE NEC (02/23/13) INSERTION OF TOTALLY IMPLANTABLE VASC ACCESS DEVIC (11/14/13) Family History: States: Unknown Family Hx - Social History Hx Tobacco Use: No Hx Alcohol Use: No Hx Substance Use: No - Immunization History Hx Tetanus Toxoid Vaccination: No Hx Influenza Vaccination: No Hx Pneumococcal Vaccination: No Review Of Systems Except As Marked, All Systems Reviewed And Found Negative. Constitutional: Negative for: Fever Gastrointestinal: Negative for: Abdominal Pain Musculoskeletal: Positive for: Back Pain Physical Exam - Physical Exam Appears: Well, Non-toxic, No Acute Distress Skin: Normal Color, Warm, Dry Head: Atraumatic, Normacephalic Eye(s): bilateral: Normal Inspection, PERRL, EOMI Nose: Normal Throat: Normal Neck: Normal Chest: Symmetrical Cardiovascular: Rhythm Regular Respiratory: Normal Breath Sounds Gastrointestinal/Abdominal: Normal Exam, Soft, No Tenderness Back: No CVA Tenderness, No Vertebral Tenderness, Paraspinal Tenderness ((+) bilateral paralumbar tenderness ; healed incision) Extremity: Normal ROM, Tenderness ((+) right foot: plantar tenderness), No Calf Tenderness, Capillary Refill (<2 sec), No Swelling Extremity: Bilateral: Normal Color And Temperature Pulses: Left Dorsalis Pedis: Normal, Right Dorsalis Pedis: Normal Neurological/Psych: Oriented x3, Normal Speech, Normal Motor, Normal Sensation Gait: Steady ED Course And Treatment O2 Sat by Pulse Oximetry: 98 - Other Rad LS XR X-Ray: Viewed By Me, Read By Radiologist Interpretation: ccession No. : [id number]. Patient Name / ID : PAULA HAWK / [id number]. Exam Date : 04/02/2017 13:28:37 ( Approved ). Study Comment : Sex / Age : F / 51Y. Creator : Cristóbal Ku MD. Dictator : Cristóbal Ku MD. Mining Consultant : Health Consultant : Cristóbal Ku MD. Approver2 : Report Date : 04/02/2017 14:35:29. My Comment : . PROCEDURE: Radiographs of the Lumbar Spine. HISTORY: pain. COMPARISON: No prior. FINDINGS: BONES: Lumbar curvature appears mildly straightened with no fracture or spondylolisthesis identified. No suspicious lytic or blastic change is evident. Vertebral body heights remain normal. DISC SPACES: Unremarkable. OTHER FINDINGS: Advanced degenerative changes are identified at the T9-10 disc interspace incidentally. IMPRESSION: Mild straightening lumbar curvature. No fracture or spondylolisthesis. MRI may be useful for further characterization if symptoms persist or worsen. 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 Progress Note: Pt treated with Toradol and Felxeril. Reid applied to foot. Discussed to where inserts, pt notes she has inserts from podiatry since she has had the same pain before. On reassessment, patient resting comfortably, no longer having back pain, no fever, no bony tenderness, no numbness, no weakness , no abdominal pain. Patient is ambulatory in the emergency department with no discomfort. Patient was instructed to follow up with physician/clinic in 1-2 days for further evaluation or return to ED if symptoms persist or worsen. Pt was given copies of XR results and instructed to follow up with PMD in 1-2 days. Instructe dto return to ER if symptoms persist or worsen. Disposition - Disposition Referrals: Dinora Aquino MD [Staff Provider] - Disposition: HOME/ ROUTINE Disposition Time: 15:00 Condition: GOOD Additional Instructions: Follow up with primary medical doctor in 1-3 days without fail for further evaluation. Take medications as prescribed. Return to the emergency department at any time if symptoms persist or worsen. Prescriptions: Cyclobenzaprine [Cyclobenzaprine HCl] 10 mg PO TID #20 tab Naproxen [Naprosyn] 1 tab PO BID PRN #20 tab PRN Reason: Pain Instructions: Acute Low Back Pain (ED) Forms: [facility] [facility] (French) - Clinical Impression Clinical Impression: Low back pain, Plantar fasciitis
[2017-04-02 13:59] LABS: URINE BILIRUBIN NEGATIVE (NEGATIVE); URINE BLOOD NEGATIVE (NEGATIVE); URINE COLOR Yellow (YELLOW); URINE GLUCOSE (UA) NORMAL (Normal); URINE KETONE NEGATIVE (NEGATIVE); URINE LEUKOCYTE ESTERASE NEG Leu/uL (Negative); URINE PROTEIN NEGATIVE (NEGATIVE); URINE UROBILINOGEN NORMAL mg/dL (0.2-1.0); WBC URINE < 1 /hpf (0-5)
--- NOTE | 2017-04-02 14:37 | RAD ---
PROCEDURE: Radiographs of the Lumbar Spine. HISTORY: pain COMPARISON: No prior. FINDINGS: BONES: Lumbar curvature appears mildly straightened with no fracture or spondylolisthesis identified. No suspicious lytic or blastic change is evident. Vertebral body heights remain normal. DISC SPACES: Unremarkable. OTHER FINDINGS: Advanced degenerative changes are identified at the T9-10 disc interspace incidentally. IMPRESSION: Mild straightening lumbar curvature. No fracture or spondylolisthesis. MRI may be useful for further characterization if symptoms persist or worsen. 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
[2017-04-02 15:08] VITALS: BP 135/78; PULSE 84
== END 2017-04-02 15:08 | disposition home or self-care (01) ==
LOC: C.ER 12:45
DX: M72.2 Plantar fascial fibromatosis (principal); M54.5 Low back pain; I10 Essential (primary) hypertension

== ENCOUNTER 2018-02-11 13:35 | Emergency (ER) | payer OTHER ==
[2018-02-11 13:36] VITALS: BMI 28.2
[2018-02-11 13:44] VITALS: TEMP 98.2; O2SAT 100
--- NOTE | 2018-02-11 14:18 | RAD ---
Date of service: 02/11/2018 PROCEDURE: Radiographs of the right elbow. HISTORY: atraumatic pain COMPARISON: No prior. FINDINGS: BONES: Normal. No fracture. JOINTS: Normal. No osteoarthritis. SOFT TISSUES: Normal. JOINT EFFUSION: None. OTHER FINDINGS: None. IMPRESSION: Unremarkable radiographs of the right elbow.
--- NOTE | 2018-02-11 14:24 | C.PDOC ---
History Of Present Illness 52 year old female patient presents to the ER with c/o right elbow pain. Patient states that she has had this pain for several months and was seen by PMD who told her it was a muscle spasm. Patient reports she later on was re- evaluated at [facility] and had a UE dupplex to r/o DVT with negative result. Patient is still in pain and denies trauma. Time Seen by Provider: 02/11/18 13:48 Chief Complaint (Nursing): Upper Extremity Problem/Injury History Per: Patient History/Exam Limitations: no limitations Onset/Duration Of Symptoms: Days Current Symptoms Are (Timing): Still Present Past Medical History Reviewed: Historical Data, Nursing Documentation, Vital Signs Vital Signs: Last Vital Signs Temp 98.2 F 02/11/18 13:42 Pulse 87 02/11/18 14:34 Resp 18 02/11/18 14:34 BP 128/79 02/11/18 14:34 Pulse Ox 100 02/11/18 14:34 - Medical History PMH: Asthma, HTN, Osteoporosis - [facility] Procedures GUM OR ALVEOLAR INCISION (10/15/14) INJECT/INFUSE NEC (02/23/13) INSERTION OF TOTALLY IMPLANTABLE VASC ACCESS DEVIC (11/14/13) Family History: States: Unknown Family Hx - Social History Hx Tobacco Use: No Hx Alcohol Use: No Hx Substance Use: No - Immunization History Hx Tetanus Toxoid Vaccination: No Hx Influenza Vaccination: No Hx Pneumococcal Vaccination: No Review Of Systems Except As Marked, All Systems Reviewed And Found Negative. Constitutional: Negative for: Other (trauma on rigth elbow pain) Musculoskeletal: Positive for: Arm Pain (right elbow pain) Physical Exam - Physical Exam Appears: Well, Non-toxic, No Acute Distress Skin: Normal Color, Warm, Dry Head: Atraumatic, Normacephalic Neck: Normal ROM, Supple Back: No CVA Tenderness Extremity: Normal ROM (x4), Tenderness (tenderness to right elbow), Capillary Refill (<2 sec), No Deformity, No Swelling, No Other (warmth; erythema ) Pulses: Left Radial: Normal, Right Radial: Normal Neurological/Psych: Oriented x3, Normal Speech, Normal Motor, Normal Sensation, Normal Reflexes Gait: Steady ED Course And Treatment O2 Sat by Pulse Oximetry: 100 (RA) Pulse Ox Interpretation: Normal - Other Rad elbow xray X-Ray: Viewed By Me, Read By Radiologist Interpretation: Accession No. : [id number]. Patient Name / ID : PAULA Calero / [id number]. Exam Date : 02/11/2018 14:00:23 ( Approved ). Study Comment : Sex / Age : F / 52Y. Creator : Osvaldo Linton MD. Dictator : Osvaldo Linton MD. Otolaryngology Nurse : Technician Biological [employer] : Osvaldo Linton MD. Approver2 : Report Date : 02/11/2018 14:16:35. My Comment : . Date of service: 02/11/2018. PROCEDURE: Radiographs of the right elbow. HISTORY: atraumatic pain. COMPARISON: No prior. FINDINGS: BONES: Normal. No fracture. JOINTS: Normal. No osteoarthritis. SOFT TISSUES: Normal. JOINT EFFUSION: None. OTHER FINDINGS: None. IMPRESSION: Unremarkable radiographs of the right elbow. Progress Note: Impression: pain in right elbow. Reassess: Patient is resting comfortably. An VANESSA wrap is used on right elbow and patient is referred to orthropedics. Disposition - Disposition Referrals: Francia Correia MD [Staff Provider] - Disposition: HOME/ ROUTINE Disposition Time: 14:21 Condition: STABLE Additional Instructions: Follow up with PMD and Orthopedist within 1-2 days. Return to ED if feel worse. Prescriptions: Diclofenac Sodium [Voltaren] 1 appl TP BID #100 gel..gram. Instructions: Elbow Tendinopathy (Tennis and Golf Elbow) Forms: [employer] [facility] (Armenian) - Clinical Impression Clinical Impression: Elbow pain - PA / COUNTY ENGINEER / Resident Statement / has reviewed & agrees with the documentation as recorded. - Scribe Statement The provider has reviewed the documentation as recorded by the Mary Ann Haile Do All medical record entries made by the Scribe were at my direction and personally dictated by me. I have reviewed the chart and agree that the record accurately reflects my personal performance of the history, physical exam, medical decision making, and the department course for this patient. I have also personally directed, reviewed, and agree with the discharge instructions and disposition.
[2018-02-11] MEDS ORDERED: Lidocaine 2% MPF (5 ml) Inj ONE (14:32)
[2018-02-11 14:36] VITALS: BP 128/79; PULSE 87; RESP 18
== END 2018-02-11 14:35 | disposition home or self-care (01) ==
LOC: C.ER 13:35
DX: M25.521 Pain in right elbow (principal)

== ENCOUNTER → 2018-02-28 | Day surgery (SDC) | payer OTHER ==
[2018-02-28 10:18] VITALS: BMI 24.0
--- NOTE | 2018-02-28 10:19 | CP.SDSHP ---
Same Day Surgery H & P - History Proposed Procedure: US guided FNA of right thyroid nodule Pre-Op Diagnosis: right thyroid nodule - Allergies Allergies: Allergies Iodinated Contrast- Oral and IV Dye [Iodinated Contrast Media - Oral and] Allergy (Verified 02/11/18 13:44) RASH iodine Allergy (Verified 02/11/18 13:44) morphine Allergy (Verified 02/11/18 13:44) RASH silver [From Tegaderm AG Mesh] Allergy (Verified 02/11/18 13:44) tap Allergy (Uncoded 02/11/18 13:44) - Physical Exam Mental Status: Alert & Oriented x3 - Impression Impression: Pt with a 1.2 cm right thyroid nodule. Plan US guided FNA of right thyroid nodule. Pt. Evaluated Today:Candidate for Anesthesia & Procedure: No Short Stay Discharge - Short Stay Discharge Admitting Diagnosis/Reason for Visit: DX: THYROID NODULES Disposition: HOME/ ROUTINE
--- NOTE | 2018-02-28 10:20 | PCM.SURG1 ---
Surgeon's Initial Post Op Note - Surgeon's Notes Surgeon: Camilo Mendoza MD Industrial Chemist: NONE Type of Anesthesia: Local Pre-Operative Diagnosis: Right thyroid nodule Operative Findings: 1.2 cm right thyroid nodule Post-Operative Diagnosis: Right thyroid nodule Operation Performed: US guided FNA of right thyroid nodule Specimen/Specimens Removed: 25 g FNA x 5 passes Estimated Blood Loss: EBL {In ML}: 1 Blood Products Given: N/A Drains Used: No Drains Post-Op Condition: Good Date of Surgery/Procedure: 02/28/18 Time of Surgery/Procedure: 10:15
--- NOTE | 2018-02-28 14:00 | US ---
PROCEDURE: Date of Procedure: 02/28/2018 PROCEDURE: 1. Ultrasound guided FNA of right thyroid nodule, CPT 80129 2. Ultrasound guidance for FNA, [address]496 Medications: 3cc 1% Lidocaine HISTORY: Enlarged right thyroid nodule. TECHNIQUE: Following informed consent and procedure time-out, a limited ultrasound patient's neck confirmed the presence of a 1.2 cm complex right thyroid nodule which is predominantly solid. After the patient's neck was prepped and draped in the usual sterile fashion, the skin was anesthetized with 1% lidocaine. Ultrasound-guided fine needle aspiration was then performed of the dominant right thyroid nodule. A total of 5 passes were made into the nodule with 25 gauge needle under ultrasound guidance. The FNA specimen was sent for routine pathology and genetics . Post biopsy ultrasound showed no hematoma. IMPRESSION: Ultrasound-guided FNA of the dominant right thyroid nodule.
== END | disposition home or self-care (01) ==
LOC: C.SPRAD 09:14
PROVIDERS: ATTEND Radiology Vascular & Interventional Radiology
DX: E04.1 Nontoxic single thyroid nodule (principal); E06.3 Autoimmune thyroiditis; Z88.5 Allergy status to narcotic agent

== ENCOUNTER 2018-07-28 08:34 | Emergency (ER) | payer OTHER ==
[2018-07-28 08:35] VITALS: BMI 24.0
[2018-07-28 09:01] VITALS: BP 155/82; PULSE 79; RESP 20; TEMP 97.6; O2SAT 99
--- NOTE | 2018-07-28 09:24 | C.PDOC ---
History Of Present Illness Patient reports a vaginal cyst that she has had for several days. No other symptoms. States that she has had similar cysts multiple times in the past. She has tried warm compresses and sitz baths with some relief. Time Seen by Provider: 07/28/18 09:01 Chief Complaint (Nursing): Abnormal Skin Integrity Past Medical History Reviewed: Historical Data, Nursing Documentation, Vital Signs Vital Signs: Last Vital Signs Temp 97.6 F 07/28/18 08:38 Pulse 79 07/28/18 08:38 Resp 20 07/28/18 08:38 BP 155/82 H 07/28/18 08:38 Pulse Ox 99 07/28/18 08:38 - Medical History PMH: Asthma, HTN, Osteoporosis - [facility] Procedures GUM OR ALVEOLAR INCISION (10/15/14) INJECT/INFUSE NEC (02/23/13) INSERTION OF TOTALLY IMPLANTABLE VASC ACCESS DEVIC (11/14/13) Family History: States: Unknown Family Hx - Social History Hx Tobacco Use: No Hx Alcohol Use: Yes Hx Substance Use: No - Immunization History Hx Tetanus Toxoid Vaccination: No Hx Influenza Vaccination: No Hx Pneumococcal Vaccination: No Review Of Systems Except As Marked, All Systems Reviewed And Found Negative. Constitutional: Negative for: Fever Cardiovascular: Negative for: Chest Pain Respiratory: Negative for: Cough, Shortness of Breath Gastrointestinal: Negative for: Nausea, Vomiting, Diarrhea Genitourinary: Negative for: Vaginal Discharge, Vaginal Bleeding, Pelvic Pain Neurological: Negative for: Altered Mental Status Physical Exam - Physical Exam Appears: Well, Non-toxic, No Acute Distress Skin: Normal Color, Warm, Dry Head: Atraumatic Eye(s): bilateral: Normal Inspection Oral Mucosa: Moist Chest: Symmetrical Cardiovascular: Rhythm Regular Respiratory: Normal Breath Sounds Gastrointestinal/Abdominal: Normal Exam Pelvic: Other (External exam- small 1cm area of erythema to R labia majora, mild induration, no fluctuance) Extremity: Normal ROM Neurological/Psych: Oriented x3, Normal Speech ED Course And Treatment O2 Sat by Pulse Oximetry: 99 Medical Decision Making Medical Decision Making: Patient with erythema to labia, but no fluctuance. I&D would not be useful at this time. Rx written for Keflex for cellulitis. Advised continuing sitz baths and warm compresses. Return to the ED for any new or worsening symptoms. Otherwise follow up with ball maker. Disposition - Disposition Disposition: HOME/ ROUTINE Disposition Time: 09:24 Condition: STABLE Additional Instructions: KENN MITCHELL, thank you for letting us take care of you today. Your provider was Vee Cardona MD and you were treated for CYST ON VAGINAL AREA. The emergency medical care you received today was directed at your acute symptoms. If you were prescribed any medication, please fill it and take as directed. It may take several days for your symptoms to resolve. Return to the Emergency Department if your symptoms worsen, do not improve, or if you have any other problems. Please contact your doctor or call one of the physicians/clinics you have been referred to that are listed on the Patient Visit Information form that is included in your discharge packet. Bring any paperwork you were given at discharge with you along with any medications you are taking to your follow up visit. Our treatment cannot replace ongoing medical care by a primary care provider outside of the emergency department. Thank you for allowing the [facility] team to be part of your care today. If you had an X-Ray or CT scan: A Radiologist will review the ED reading if any change in treatment is needed we will contact you. If you had a blood, urine, or wound culture: It will take several days for the results, if any change in treatment is needed we will contact you. If you had an STI test: It will take 48 hours for the results. Please call after 1 week if you have not heard back. Prescriptions: Cephalexin [cephalexin] 500 mg PO QID #28 cap Instructions: Cellulitis (Skin Infection), Adult (DC) Forms: [facility] (Burundian) - Clinical Impression Clinical Impression: Vaginal cyst
== END 2018-07-28 09:30 | disposition home or self-care (01) ==
LOC: C.ER 08:34
DX: N89.8 Other specified noninflammatory disorders of vagina (principal); I10 Essential (primary) hypertension; M81.0 Age-related osteoporosis without current pathological fracture